=== PATIENT | male | born 1995 | race Caucasian/White ===

== ENCOUNTER 2018-12-21 16:54 | Emergency (ER) | payer OTHER ==
[2018-12-21] MEDS: ACETAMINOPHEN 325 MG TAB PO (17:40)
== END 2018-12-21 20:29 | disposition home or self-care (01) ==
LOC: FTE 20:29
DX: S63.501A Unspecified sprain of right wrist, initial encounter (principal); S39.92XA Unspecified injury of lower back, initial encounter; R93.0 Abnormal findings on diagnostic imaging of skull and head, not elsewhere classified; V89.2XXA Person injured in unspecified motor-vehicle accident, traffic, initial encounter
CPT/HCPCS: 70450; 72100; 73110-RT; 73130-RT; 99284-25